=== PATIENT | male | born 1985 | race Caucasian/White ===

== ENCOUNTER 2025-05-04 16:41 | Inpatient (IN) | payer OTHER ==
[2025-05-04 17:08] VITALS: BMI 27.8
[2025-05-04] MEDS ORDERED: DICYCLOMINE HCL 10 MG CAPSULE PO PRN (18:00)
[2025-05-04] MEDS ORDERED: NICOTINE POLACRILEX 2 MG GUM BUC PRN (18:00)
[2025-05-04] MEDS ORDERED: MAG HYDROX/AL HYDROX/SIMETH 30 ML UNIT-DOSE CUP PO PRN (18:00)
[2025-05-04] MEDS ORDERED: BENZONATATE 200 MG CAPSULE PO PRN (18:00)
[2025-05-04] MEDS ORDERED: IBUPROFEN 400 MG TABLET (FP) PO PRN (18:00)
[2025-05-04] MEDS ORDERED: NALOXONE (NARCAN) HCL 4 MG/0.1 ML SPRAY NS PRN (18:00)
[2025-05-04] MEDS ORDERED: IBUPROFEN 600 MG TABLET (FP) PO PRN (18:00)
[2025-05-04] MEDS ORDERED: BISMUTH SUBSALICYLATE 524 MG/30 ML PO PRN (18:00)
[2025-05-04] MEDS ORDERED: ONDANSETRON *ODT* 4 MG TABLET SL PRN (18:00)
[2025-05-04] MEDS ORDERED: MAGNESIUM HYDROX 2400MG/30ML ORAL SUSPENSION 30 ML CUP PO PRN (18:00)
[2025-05-04] MEDS ORDERED: ACETAMINOPHEN 325 MG TABLET (FP) PO PRN (18:00)
[2025-05-04] MEDS ORDERED: NICOTINE POLACRILEX 2 MG LOZENGE BC PRN (18:00)
[2025-05-04] MEDS ORDERED: BENZOCAINE/MENTHOL (CHLORASEPTIC ) LOZENGE MM PRN (18:00)
[2025-05-04] MEDS ORDERED: LOPERAMIDE HCL 2 MG CAPSULE PO PRN (18:00)
[2025-05-04] MEDS ORDERED: POLYETHYLENE GLYCOL (HEALTHYLAX) 3350 17 GM PACKET PO PRN (18:00)
[2025-05-04] MEDS ORDERED: guaiFENesin 600 MG TABLET.ER (FP) PO PRN (18:00)
[2025-05-04] MEDS ORDERED: chlordiazePOXIDE HCL 25 MG CAPSULE ONE (20:01)
[2025-05-04] MEDS: chlordiazePOXIDE HCL 25 MG CAPSULE PO ONE (20:02)
[2025-05-04] MEDS: hydrOXYzine PAMOATE 25 MG CAPSULE (FP) PO PRN (22:40)
[2025-05-04] MEDS: METHOCARBAMOL 500 MG TABLET PO PRN (22:40)
[2025-05-04] MEDS: THIAMINE 100 MG TABLET PO SCH (22:40)
[2025-05-04] MEDS: MELATONIN 5 MG TABLETS PO SCH (22:40)
[2025-05-04] MEDS: levETIRAcetam 500 MG TABLET (FP) PO SCH (22:40)
[2025-05-04] MEDS: chlordiazePOXIDE HCL 25 MG CAPSULE PO SCH (22:41)
[2025-05-05] MEDS: PRENATAL VITAMINS W/ FOLIC ACID TABLET (FP) PO SCH (10:20)
[2025-05-05 10:57] LABS: HEMATOCRIT 42.9 % (40.1-51.0); HEMOGLOBIN 14.4 g/dL (13.7-17.5); MCHC 33.6 g/dl (32.3-36.5); MEAN CELL VOLUME 104.1 fl (79.0-92.2); MEAN PLT VOLUME 9.9 fl (9.4-12.4); PLATELET COUNT 230 x10^3/uL (163-337); RDW 11.7 % (12.0-15.6)
[2025-05-05 11:05] LABS: CHLORIDE 109 mmol/L (98-107); POTASSIUM 3.7 mmol/L (3.5-5.1); SODIUM 140 mmol/L (136-145)
[2025-05-05 11:09] LABS: ANION GAP 2 mmol/L (4-13); BLOOD UREA NITROGEN 10.1 mg/dL (7-18); CALCIUM 9.2 mg/dL (8.5-10.1); CO2 29 mmol/L (21-32); GLUCOSE,RANDOM 105 mg/dL (74-106)
[2025-05-05 11:12] LABS: SGOT/AST 19 U/L (15-37); SGPT/ALT 28 U/L (13-61)
[2025-05-05 11:13] LABS: CREATININE 0.7 mg/dL (0.55-1.3)
[2025-05-05 11:14] LABS: BILIRUBIN,TOTAL 0.6 mg/dL (0.2-1); TOT PROT 5.9 g/dl (6.4-8.2)
[2025-05-05 11:15] LABS: ALK PHOS 109 U/L (45-117)
[2025-05-05] MEDS: NALTREXONE HCL 50 MG TABLET PO SCH (11:30)
[2025-05-05] MEDS ORDERED: DIVALPROEX SODIUM 250 MG TABLET E.C. PO SCH (22:00)
[2025-05-05] MEDS: PRAZOSIN HCL 1 MG CAPSULE PO SCH (22:36)
[2025-05-05] MEDS: QUEtiapine FUMARATE 100 MG TABLET (FP) PO SCH (22:37)
[2025-05-06] MEDS: chlordiazePOXIDE HCL 25 MG CAPSULE PO SCH (05:32)
[2025-05-06] MEDS: chlordiazePOXIDE HCL 25 MG CAPSULE PO PRN (19:15)
[2025-05-06] MEDS: QUEtiapine FUMARATE 200 MG TABLET PO SCH (22:24)
[2025-05-07] MEDS: chlordiazePOXIDE HCL 10 MG CAPSULE PO PRN (00:26)
[2025-05-07] MEDS: chlordiazePOXIDE HCL 10 MG CAPSULE PO SCH (05:40)
[2025-05-07] MEDS ORDERED: QUEtiapine FUMARATE 100 MG TABLET (FP) PO SCH (10:00)
[2025-05-07] MEDS: QUEtiapine FUMARATE 100 MG TABLET (FP) PO SCH (10:28)
[2025-05-08] MEDS: chlordiazePOXIDE HCL 10 MG CAPSULE PO SCH (06:00)
[2025-05-08] MEDS: hydrOXYzine PAMOATE 50 MG CAPSULE (FP) PO ONE (10:00)
[2025-05-08] MEDS: hydrOXYzine PAMOATE 25 MG CAPSULE (FP) PO PRN (16:26)
[2025-05-08 16:32] VITALS: RESP 18
[2025-05-09] MEDS: chlordiazePOXIDE HCL 10 MG CAPSULE PO ONE (06:00)
[2025-05-09 08:47] VITALS: BP 128/84; PULSE 72; TEMP 97.5
== END 2025-05-09 09:33 | disposition home or self-care (01) | DRG 774 ==
LOC: YASAS 16:41 → Y3N 19:57 → Y6N 05-07 17:48
PROVIDERS: ADMIT Allergy & Immunology; ATTEND Allergy & Immunology
PROC: HZ2ZZZZ Detoxification Services for Substance Abuse Treatment (ICD-10-PCS; principal; 2025-05-04)
DX: F10.230 Alcohol dependence with withdrawal, uncomplicated (principal); F14.20 Cocaine dependence, uncomplicated; F15.20 Other stimulant dependence, uncomplicated; F12.20 Cannabis dependence, uncomplicated; F17.210 Nicotine dependence, cigarettes, uncomplicated; F31.9 Bipolar disorder, unspecified; F19.280 Other psychoactive substance dependence with psychoactive substance-induced anxiety disorder; F43.10 Post-traumatic stress disorder, unspecified; I10 Essential (primary) hypertension
CPT/HCPCS: 36415; 80053; 80307; 85027; 86780; 93005; 93010